=== PATIENT | male | born 2005 | race Caucasian/White ===

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

== ENCOUNTER 2023-04-04 14:29 | Emergency (ER) | payer BC ==
[~2023-04-04] VITALS: Ht 177.8 cm; Wt 108.9 kg
[~2023-04-04 14:29] MED LIST changes: +ONDANSETRON4 MG SL
== END 2023-04-04 17:58 | disposition home or self-care (01) ==
LOC: ED 14:29
DX: M43.06 Spondylolysis, lumbar region (principal); J45.909 Unspecified asthma, uncomplicated; Z88.1 Allergy status to other antibiotic agents; Z88.6 Allergy status to analgesic agent; Z88.0 Allergy status to penicillin; Z90.89 Acquired absence of other organs

== ENCOUNTER 2023-05-20 12:40 | Emergency (ER) | payer BC ==
[~2023-05-20] VITALS: Ht 177.8 cm; Wt 108.9 kg
[2023-05-20] MEDS ORDERED: Motrin,Rufen800 MG PO (14:51)
== END 2023-05-20 15:42 | disposition home or self-care (01) ==
LOC: ED 12:40
DX: M94.0 Chondrocostal junction syndrome [Tietze] (principal); J45.909 Unspecified asthma, uncomplicated; Z88.1 Allergy status to other antibiotic agents; Z88.0 Allergy status to penicillin; Z88.6 Allergy status to analgesic agent; F41.9 Anxiety disorder, unspecified; Z90.89 Acquired absence of other organs; Z98.890 Other specified postprocedural states

== ENCOUNTER 2024-02-01 23:52 | Emergency (ER) | payer BC ==
[~2024-02-01] VITALS: Ht 177.8 cm; Wt 113.4 kg
[~2024-02-01 23:52] MED LIST changes: +Motrin,Rufen800 MG PO
[2024-02-02] MEDS ORDERED: Ketorolac Tromethamine 60 MG/2 ML VIAL IM ONE (00:05)
[2024-02-02] MEDS ORDERED: Dexamethasone Sodium Phospha 20 MG/5 ML VIAL IM ONE (00:05)
[2024-02-02] MEDS ORDERED: CYCLOBENZAPRINE5 M3 PO (01:05)
[2024-02-02] MEDS ORDERED: MELOXICAM15 MG PO (01:05)
== END 2024-02-02 01:29 | disposition home or self-care (01) ==
LOC: ED 23:52
DX: M54.50 Low back pain, unspecified (principal); M62.830 Muscle spasm of back; Z88.1 Allergy status to other antibiotic agents; Z88.0 Allergy status to penicillin

== ENCOUNTER 2024-05-19 03:49 | Emergency (ER) | payer BC ==
[~2024-05-19] VITALS: Ht 177.8 cm; Wt 117.9 kg
[~2024-05-19 03:49] MED LIST changes: +CYCLOBENZAPRINE5 M3 PO; +MELOXICAM15 MG PO
== END 2024-05-19 05:02 | disposition home or self-care (01) ==
LOC: ED 03:49
DX: J10.1 Influenza due to other identified influenza virus with other respiratory manifestations (principal); Z20.822 Contact with and (suspected) exposure to COVID-19; J45.909 Unspecified asthma, uncomplicated; Z88.0 Allergy status to penicillin; Z88.6 Allergy status to analgesic agent; Z88.1 Allergy status to other antibiotic agents; Z90.89 Acquired absence of other organs

== ENCOUNTER → 2024-06-08 | Outpatient (CLI) | payer OTHER ==
[~2024-06-08] MED LIST changes: +CYCLOBENZAPRINE10 MG PO
== END | disposition home or self-care (01) ==
LOC: RAD 15:43
PROVIDERS: ATTEND Family Medicine
DX: M47.817 Spondylosis without myelopathy or radiculopathy, lumbosacral region (principal)

== ENCOUNTER 2024-06-09 17:22 | Emergency (ER) | payer OTHER ==
[~2024-06-09] VITALS: Wt 120.2 kg
[~2024-06-09 17:22] MED LIST changes: -CYCLOBENZAPRINE10 MG PO
[2024-06-09] MEDS ORDERED: Acetaminophen/Oxycodone 5 MG/325 MG TABLET PO ONE (17:25)
[2024-06-09] MEDS ORDERED: Tdap Vaccine 0.5 ML SYR (Adult Vaccine) IM ONE (17:40)
[2024-06-09] MEDS ORDERED: MELOXICAM15 MG PO (18:03)
[2024-06-09] MEDS ORDERED: CYCLOBENZAPRINE10 MG PO (18:03)
== END 2024-06-09 18:08 | disposition home or self-care (01) ==
LOC: ED 17:22
DX: M54.50 Low back pain, unspecified (principal); M25.572 Pain in left ankle and joints of left foot; M25.571 Pain in right ankle and joints of right foot; M25.562 Pain in left knee; J45.909 Unspecified asthma, uncomplicated; Z88.1 Allergy status to other antibiotic agents; Z88.0 Allergy status to penicillin; Z88.6 Allergy status to analgesic agent; Z90.89 Acquired absence of other organs

== ENCOUNTER → 2024-07-15 | Outpatient (CLI) | payer OTHER ==
[~2024-07-15] MED LIST changes: +CYCLOBENZAPRINE10 MG PO
== END | disposition home or self-care (01) ==
LOC: MRI 08:35
PROVIDERS: ATTEND Family Medicine
DX: S33.5XXA Sprain of ligaments of lumbar spine, initial encounter (principal); M48.07 Spinal stenosis, lumbosacral region; M43.16 Spondylolisthesis, lumbar region; M47.816 Spondylosis without myelopathy or radiculopathy, lumbar region; X58.XXXA Exposure to other specified factors, initial encounter; Y93.89 Activity, other specified; Y92.89 Other specified places as the place of occurrence of the external cause; Y99.8 Other external cause status

== ENCOUNTER 2024-09-29 19:14 | Emergency (ER) | payer OTHER ==
[~2024-09-29] VITALS: Ht 1798 cm; Wt 122.5 kg
== END 2024-09-29 19:44 | disposition home or self-care (01) ==
LOC: ED 19:14
DX: S06.0X0A Concussion without loss of consciousness, initial encounter (principal); J45.909 Unspecified asthma, uncomplicated; Z79.899 Other long term (current) drug therapy; Z88.0 Allergy status to penicillin; Z88.1 Allergy status to other antibiotic agents; W18.39XA Other fall on same level, initial encounter; Y93.89 Activity, other specified; Y92.89 Other specified places as the place of occurrence of the external cause; Y99.8 Other external cause status